=== PATIENT | female | born 1965 | race Caucasian/White ===

== ENCOUNTER 2019-07-06 12:41 | Emergency (ER) | payer SELFPAY ==
[2019-07-06 12:43] VITALS: BP 153/89; PULSE 102; RESP 17; TEMP 37.2; O2SAT 97; BMI 24.5
--- NOTE | 2019-07-06 13:14 | ED.VIS.GEN ---
History of Present Illness Chief Complaint: Dental Informant: Patient Onset: Days Current Severity: Moderate Maximum Severity: Moderate Narrative: Patient presents with right lower dental pain, swelling, facial swelling for the past 3 days. She states she has had some teeth broken off on her right lower mandible for some time. 3 days ago she started getting pain and swelling. She has not noted fever. Has not had any difficulty swallowing. Past Medical History - Allergies and Home Meds Allergies/Adverse Reactions: Allergies No Known Allergies Allergy (Verified 07/06/19 12:42) Primary Care Physician: Care Physician,No Primary [Primary Care Provider] - Prior records reviewed: Yes Past Medical History: - - Reviewed Smoking Status: Never smoker Review of Systems General: Denies: Chills, Fever Eyes: Denies: Visual changes - bilaterally ENT: Reports: - - Dental pain and facial swelling. Denies: Bilateral ear pain Cardiovascular: Denies: Chest pain Respiratory: Denies: Dyspnea Gastrointestinal: Denies: Abdominal pain Genitourinary: Denies: Dysuria Musculoskeletal: Denies: Myalgias Neurological: Denies: Headache Physical Exam Vital Signs/Narrative: Vital Signs Temp Pulse Resp BP Pulse Ox 07/06/19 12:43 99.0 F 102 H 17 153/89 H 97 Inital Vital Signs reviewed: Yes General: Well nourished, Well developed Head: Normocephalic ENT: Moist mucous membranes, - - Right maxillary surface has 2 molars broken off at the gums with surrounding gum edema. Posterior pharynx examination is normal. Patient does have right-sided facial swelling. No erythema noted. No evidence of Norman's angina. Neck: Supple Cardiovascular: Regular rate, Regular rhythm, No murmurs Respiratory: No distress, CTA bilaterally Abdomen: Soft, Nontender Skin: Normal color Neurological: Alert, Oriented x3 Psychological: Normal affect Diagnostic/Tx/Re-eval - Medical Decision Making Patient be treated with naproxen and Pen-Vee K here. She will be given prescriptions for the same along with a few tabs of [place]. She is given a dental referral sheet. We did discuss the possibility of Norman's angina and what she should watch for. She was encouraged to return immediately for any worsening symptoms or concerns. ED Disposition - Plan for ED Patient: Disposition: Home or Assisted Living Diagnosis: Dental abscess Instructions: Dental Abscess Prescriptions: Naproxen [Naprosyn] 500 mg PO BID PRN PRN #20 tablet PRN Reason: Pain Score 1-10/10 Hydrocodone Bitart/Apap 5-325 [[place] 5MG-325MG] 1 tablet PO Q6H PRN PRN 3 Days #10 tablet PRN Reason: Pain Penicillin V Potassium 500 mg PO 4X/DAY #40 tablet Additional Instructions: Dental list provided
[2019-07-06] MEDS: Penicillin Vk 250 MG Tablet 500 MG PO (13:30)
[2019-07-06] MEDS: Naproxen 500 MG Tablet PO (13:30)
[2019-07-06 13:37] VITALS: RESP 18
== END 2019-07-06 13:39 | disposition home or self-care (01) ==
LOC: ED 13:22
PROVIDERS: Emergency Provider Emergency Medicine
DX: K04.7 Periapical abscess without sinus (principal); S02.5XXA Fracture of tooth (traumatic), initial encounter for closed fracture; X58.XXXA Exposure to other specified factors, initial encounter; Y93.9 Activity, unspecified; Y92.9 Unspecified place or not applicable
CPT/HCPCS: 99283